=== PATIENT | female | born 1995 | race Caucasian/White ===

== ENCOUNTER 2020-06-10 21:38 | Emergency (ER) | payer OTHER ==
[2020-06-10 21:58] LABS: BILIRUBIN,URINE NEGATIVE (NEGATIVE); GLUCOSE, URINE (UA) NEGATIVE (NEGATIVE); KETONES,URINE (UA) NEGATIVE (NEGATIVE); LEUKOCYTE ESTERASE, URINE MODERATE (NEGATIVE); NITRITE,URINE NEGATIVE (NEGATIVE); OCCULT BLOOD,URINE LARGE (NEGATIVE); PH,URINE 6.5 PH (5.0-7.5); PROTEIN,URINE 30 mg/dL (NEGATIVE); UROBILINOGEN,URINE 0.2 (NORMAL) E.U./dL (NORMAL)
[2020-06-10 21:59] LABS: CLARITY,URINE SL. CLOUDY (CLEAR)
--- NOTE | 2020-06-10 22:02 | ED Physician Documentation ---
History of Present Illness - Stated complaint Stated Complaint: F - Chief complaint Chief Complaint: UTI - History obtained from History obtained from: Patient - Additonal information Additional information: The patient presents with complaints of urinary discomfort. This started this morning. She reports pain when she voids and shortly thereafter. She also describes symptoms consistent with frequency urgency and hesitancy. She has had no fevers, chills or sweats. She has had no associated nausea, vomiting or diarrhea. Review of Systems Constitutional: reports: Reviewed and negative Eyes: reports: Reviewed and negative Ears: reports: Reviewed and negative Nose: reports: Reviewed and negative Throat: reports: Reviewed and negative Cardiac: reports: Reviewed and negative Respiratory: reports: Reviewed and negative GI: reports: Reviewed and negative : reports: Dysuria, Frequency, Hesitancy. 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 - Present Medications Home Medications: Ambulatory Orders Medication Instructions Recorded Confirmed Nitrofurantoin Monohyd/M-Cryst 100 mg PO BID 7 Days #13 capsule 06/10/20 [Macrobid 100 mg Capsule] Phenazopyridine HCl [Pyridium] 200 mg PO TID 2 Days #5 tablet 06/10/20 - Allergies Allergies/Adverse Reactions: Allergies Allergy/AdvReac Type Severity Reaction Status Date / Time No Known Drug Allergies Allergy Verified 06/10/20 21:47 - Social History Does the pt smoke?: Yes Smoking Status: Current every day smoker Does the pt drink ETOH?: Yes Does the pt have substance abuse?: No Substance Use and Type: Marijuana - Immunizations Immunizations are current?: Yes - POLST Patient has POLST: No PD ED PE NORMAL - Vitals Vital signs reviewed: Yes - General General: No acute distress - HEENT HEENT: PERRL - Neck Neck: Supple, no meningeal sign - Cardiac Cardiac: RRR, No murmur - Respiratory Respiratory: Clear bilaterally - Abdomen Abdomen: Normal bowel sounds, Soft, Non tender, Non distended - Back Back: No CVA TTP - Derm Derm: Normal color, Warm and dry, No rash - Extremities Extremities: No deformity - Neuro Neuro: Alert and oriented X 3 - Psych Psych: Normal mood, Normal affect Results - Vitals Vitals: Vital Signs - 24 hr 06/10/20 06/10/20 21:40 21:48 Temperature 37.1 C 37.1 C Heart Rate 103 H 103 H Respiratory 12 14 Rate Blood Pressure 140/101 H 140/98 H O2 Saturation 98 99 Oxygen O2 Source Room air - Labs Labs: Laboratory Tests 06/10/20 06/10/20 21:53 21:53 Urine Color YELLOW Urine Clarity SL. CLOUDY Urine pH 6.5 Ur Specific [place] 1.010 1.015 Urine Protein 30 H Urine Glucose (UA) NEGATIVE Urine Ketones NEGATIVE Urine Occult Blood LARGE H Urine Nitrite NEGATIVE Urine Bilirubin NEGATIVE Urine Urobilinogen 0.2 (NORMAL) Ur Leukocyte Esterase MODERATE H Ur Microscopic Review INDICATED Urine Culture Comments Not Reportable Urine HCG, Qual NEGATIVE Departure - Departure Disposition: Home, Self Care Clinical Impression: Cystitis Condition: Stable Record reviewed to determine appropriate education?: Yes Instructions: ED UTI Cystitis Female Prescriptions: Nitrofurantoin Monohyd/M-Cryst [Macrobid 100 mg Capsule] 100 mg PO BID 7 Days #13 capsule Phenazopyridine HCl [Pyridium] 200 mg PO TID 2 Days #5 tablet
[2020-06-10 22:03] LABS: HCG UR QUAL NEGATIVE
[2020-06-10] MEDS ORDERED: NITROFURANTOIN MACRO 100 MG CAPSULE PO STA (22:06)
[2020-06-10] MEDS ORDERED: PHENAZOPYRIDINE 100 MG TABLET PO STA (22:07)
[2020-06-10 22:16] LABS: BACTERIA,URINE None Seen /HPF (None Seen); SQUAMOUS EPITHELIAL CELL,UR FEW Squamous (<= Few)
[2020-06-10 22:20] VITALS: BP 132/88
== END 2020-06-10 22:19 | disposition home or self-care (01) ==
LOC: ED 21:38
DX: N30.90 Cystitis, unspecified without hematuria (principal); F17.200 Nicotine dependence, unspecified, uncomplicated
CPT/HCPCS: 81001; 81025; 87086; 99283; 99284; A9270; 81003

== ENCOUNTER 2020-10-04 12:50 | Emergency (ER) | payer OTHER ==
--- NOTE | 2020-10-04 14:01 | ED Physician Documentation ---
History of Present Illness - Stated complaint Stated Complaint: FEMALE - Chief complaint Chief Complaint: Abd Pain - History obtained from History obtained from: Patient - Additonal information Additional information: Patient comes emergency department for chief complaint of my period is heavy this month. The patient states that she started her period yesterday and that she was using a tampon every 2 hours. Now, she states she is using 1-2 tampons every hour and is concerned about this. She denies lightheadedness or shortness of breath. She states that her last period was just a couple weeks ago and was very light. Patient states she is having some left lower quadrant pain. She denies any nausea or vomiting. No fevers or chills. No dysuria. Patient is not known to be currently, but states she did not take a test when her last period was light. She denies any other complaints at this time. She does note that she has had irregular periods all her life and has been planning to follow-up with gynecology in regard to this. Review of Systems Ten Systems: 10 systems reviewed and negative Constitutional: reports: Reviewed and negative Eyes: reports: Reviewed and negative Ears: reports: Reviewed and negative Nose: reports: Reviewed and negative Throat: reports: Reviewed and negative Cardiac: reports: Reviewed and negative Respiratory: reports: Reviewed and negative GI: reports: Reviewed and negative : reports: Vaginal bleeding Skin: reports: Reviewed and negative Musculoskeletal: reports: Reviewed and negative Neurologic: reports: Reviewed and negative Psychiatric: reports: Reviewed and negative Endocrine: reports: Reviewed and negative Immunocompromised: reports: Reviewed and negative PD PAST MEDICAL HISTORY - Past Medical History Past Medical History: Yes Cardiovascular: None Respiratory: None Neuro: None Endocrine/Autoimmune: None GI: None MANAGER STARS: None : None HEENT: None Psych: Depression, Anxiety Musculoskeletal: None Derm: None - Past Surgical History Past Surgical History: Yes /MANAGER STARS: section - Present Medications Home Medications: Ambulatory Orders Medication Instructions Recorded Confirmed No Known Home Medications 10/04/20 10/04/20 - Allergies Allergies/Adverse Reactions: Allergies Allergy/AdvReac Type Severity Reaction Status Date / Time No Known Drug Allergies Allergy Verified 10/04/20 12:56 - Social History Does the pt smoke?: Yes Smoking Status: Current every day smoker Does the pt drink ETOH?: Yes Does the pt have substance abuse?: No - Immunizations Immunizations are current?: Yes - POLST Patient has POLST: No PD ED PE NORMAL - Vitals Vital signs reviewed: Yes - General General: Alert and oriented X 3, No acute distress, Well developed/nourished - HEENT HEENT: Atraumatic, PERRL, EOMI, Moist mucous membranes - Neck Neck: Supple, no meningeal sign - Cardiac Cardiac: RRR, No murmur, Strong equal pulses - Respiratory Respiratory: No respiratory distress, Clear bilaterally - Abdomen Abdomen: Soft, Non distended, Other (Left lower quadrant tenderness, mild. No RB/guarding) - Derm Derm: Normal color, Warm and dry, No rash - Extremities Extremities: No deformity, No edema, No calf tenderness / cord - Neuro Neuro: Alert and oriented X 3 - Psych Psych: Normal mood, Normal affect Results - Vitals Vitals: Oxygen O2 Source Room air - Labs Labs: Laboratory Tests 10/04/20 13:30 Urine Color LT RED Urine Clarity CLOUDY Urine pH 8.0 H Ur Specific [place] 1.020 Urine Protein 30 H Urine Glucose (UA) NEGATIVE Urine Ketones NEGATIVE Urine Occult Blood LARGE H Urine Nitrite NEGATIVE Urine Bilirubin NEGATIVE Urine Urobilinogen 0.2 (NORMAL) Ur Leukocyte Esterase NEGATIVE Urine RBC TNTC H Urine WBC 0-3 Ur Squamous Epith Cells FEW Squamous Urine Bacteria Few Ur Microscopic Review INDICATED Urine Culture Comments NOT INDICATED Urine HCG, Qual NEGATIVE PD MEDICAL DECISION MAKING - ED course Complexity details: reviewed old records, reviewed results, re-evaluated patient, considered differential, d/w patient ED course: Patient was very well-appearing, and I discussed with her that it is not unusual to have heavier. If the preceding one was very light. She was worked up with urinalysis and urine test in the emergency department, both of which were negative. I did not feel the pt had an emergent condition, and have counseled her regarding dysfunctional uterine bleeding. The pt already has plans to f/u with [employer]NAGER [employer] regarding her irregular periods and desire to get , and I have encouraged her to continue this plan. We have discussed the usual indications for return. Departure - Departure Disposition: 01 Home, Self Care Clinical Impression: Dysfunctional uterine bleeding Condition: Stable Instructions: ED Bleed Irregular Vaginal Comments: Your test is negative. Most likely, you are having a heavy period now because of your recent very light period. Generally, your cycle will correct itself the next time around; however, if you have chronically irregular periods, it would be good for you to follow-up with gynecology. Please make an appointment as soon as you are able to be seen for further evaluation of this. There is no evidence of an emergent cause of your symptoms today. Discharge Date/Time: 10/04/20 15:09
[2020-10-04 14:34] LABS: BILIRUBIN,URINE NEGATIVE (NEGATIVE); GLUCOSE, URINE (UA) NEGATIVE (NEGATIVE); KETONES,URINE (UA) NEGATIVE (NEGATIVE); LEUKOCYTE ESTERASE, URINE NEGATIVE (NEGATIVE); NITRITE,URINE NEGATIVE (NEGATIVE); OCCULT BLOOD,URINE LARGE (NEGATIVE); PROTEIN,URINE 30 mg/dL (NEGATIVE); UROBILINOGEN,URINE 0.2 (NORMAL) E.U./dL (NORMAL)
[2020-10-04 14:38] LABS: CLARITY,URINE CLOUDY (CLEAR); HCG UR QUAL NEGATIVE
[2020-10-04] MEDS ORDERED: IBUPROFEN 600 MG TABLET PO STA (14:42)
[2020-10-04 14:46] LABS: BACTERIA,URINE Few /HPF (None Seen); RBC,URINE TNTC /HPF (0-5); SQUAMOUS EPITHELIAL CELL,UR FEW Squamous (<= Few)
[2020-10-04 15:07] VITALS: BP 138/74
== END 2020-10-04 15:09 | disposition home or self-care (01) ==
LOC: ED 12:50
DX: N93.8 Other specified abnormal uterine and vaginal bleeding (principal); N92.6 Irregular menstruation, unspecified; Z32.02 Encounter for pregnancy test, result negative; F17.200 Nicotine dependence, unspecified, uncomplicated
CPT/HCPCS: 81001; 81003; 81025; 87086; 99284

== ENCOUNTER 2021-12-21 08:00 | Outpatient (CLI) | payer OTHER | END 2021-12-21 23:59 | disposition home or self-care (01) | LOC: LAB.N 08:00 | PROVIDERS: ATTEND Nurse Practitioner Family | DX: J06.9 Acute upper respiratory infection, unspecified (principal); Z20.822 Contact with and (suspected) exposure to COVID-19 ==

== ENCOUNTER 2023-05-28 09:19 | Emergency (ER) | payer OTHER ==
[2023-05-28 09:43] VITALS: BP 155/116; O2SAT 99
--- NOTE | 2023-05-28 10:02 | ED Physician Documentation ---
History of Present Illness - Stated complaint Stated Complaint: GI - Chief complaint Chief Complaint: General - History obtained from History obtained from: Patient - Additonal information Additional information: Patient is a 27-year-old female with no significant prior medical history presenting for evaluation of a "Ruptured cyst" On her abdominal wall. Patient states that she has gotten these recurrently especially near her scar. Her last was years ago. She states that she has noticed this 1 for the past several days and last night it opened up and started draining some pus. She denies associated abdominal pain, fevers, vomiting. She is not a diabetic. Review of Systems Constitutional: denies: Fever Cardiac: denies: Chest pain / pressure Respiratory: denies: Dyspnea GI: denies: Abdominal Pain Skin: reports: Other (Abscess) PD PAST MEDICAL HISTORY - Past Medical History Cardiovascular: None Respiratory: None Neuro: None Endocrine/Autoimmune: None GI: None DINNER COOK: None : None HEENT: None Psych: Depression, Anxiety Musculoskeletal: None Derm: None - Past Surgical History Past Surgical History: Yes /DINNER COOK: section - Present Medications Home Medications: Ambulatory Orders Medication Instructions Recorded Confirmed Sulfamethox/Trimeth 800/160 1 each PO BID #14 tablet 05/28/23 [Bactrim Ds 800/160] cephALEXin [Keflex] 500 mg PO Q6H #28 cap 05/28/23 - Allergies Allergies/Adverse Reactions: Allergies Allergy/AdvReac Type Severity Reaction Status Date / Time No Known Drug Allergies Allergy Verified 10/04/20 12:56 - Social History Does the pt smoke?: Yes Smoking Status: Current every day smoker Does the pt drink ETOH?: Yes Does the pt have substance abuse?: No - Immunizations Immunizations are current?: Yes - POLST Patient has POLST: No PD ED PE NORMAL - General General: Alert and oriented X 3, No acute distress, Well developed/nourished - HEENT HEENT: Atraumatic - Respiratory Respiratory: No respiratory distress - Abdomen Abdomen: Normal bowel sounds, Soft, Non tender, Non distended, Other (1 cm opening in the left lower quadrant near her incision with mild surrounding erythema, no significant drainage or fluctuance from wound) Results - Vitals Vitals: Vital Signs - 24 hr 05/28/23 09:31 Temperature 36.6 C Heart Rate 96 Respiratory 18 Rate Blood Pressure 155/116 H O2 Saturation 99 Oxygen O2 Source Room air PD Medical Decision Making - ED course ED course: Patient presenting for evaluation of skin abnormality noticed in the left lower abdomen. Based on history and exam sounds like this was an abscess that has spontaneously opened and has been draining. There is some surrounding redness and swelling. No indication of deeper space infection or need for further incision and drainage. Wound culture was obtained. Will start on antibiotics to cover for surrounding cellulitis. Patient is otherwise well-appearing, nonseptic, benign abdominal exam. She is counseled on concerning symptoms to return for. Departure - Departure Disposition: Home, Self Care Clinical Impression: Abscess of abdominal wall Condition: Stable Instructions: ED Staph Infec Abx Tx Only Prescriptions: Sulfamethox/Trimeth 800/160 [Bactrim Ds 800/160] 1 each PO BID #14 tablet cephALEXin [Keflex] 500 mg PO Q6H #28 cap Comments: It appears that you hadAn abscess to the lower abdominal wall that has since opened up and is draining. I am going to start you on 2 antibiotics to cover the infection in the surrounding skin. I have also sent a wound culture and we would notify you If you need a different antibiotic. Please continue with warm compresses to the area. Return to the emergency department with any worsening symptoms. I have sent your prescriptions to [facility] in [place]. Forms: PCP List Discharge Date/Time: 05/28/23 10:21
== END 2023-05-28 10:21 | disposition home or self-care (01) ==
LOC: ED 09:19
DX: L02.211 Cutaneous abscess of abdominal wall (principal); F17.200 Nicotine dependence, unspecified, uncomplicated
CPT/HCPCS: 87070; 87205; 99283